=== PATIENT | male | born 1965 | race Caucasian/White ===

== ENCOUNTER 2018-11-01 21:51 | Emergency (ER) | payer OTHER ==
[~2018-11-01] VITALS: Ht 180.3 cm; Wt 68.0 kg
[2018-11-01 22:16] VITALS: BP 124/85
[2018-11-01] MEDS ORDERED: IBUPROFEN 600 MG TABLET PO ONE (23:30)
[2018-11-02 00:28] LABS: APPEARANCE,URINE Clear (CLEAR); BILIRUBIN,URINE Negative (NEGATIVE); BLOOD, URINE Small Ery/uL (NEGATIVE); COLOR,URINE Yellow (YELLOW); KETONES,URINE Negative (NEGATIVE); LEUKOCYTE ESTERASE ,URINE Negative (NEGATIVE); NITRITE, URINE Negative (NEGATIVE); PROTEIN,URINE Trace mg/dl (NEGATIVE); UGLUCOSE Negative (NEGATIVE); UROBILINOGEN,URINE 0.2 EU/dL (0.2)
[2018-11-02] MEDS ORDERED: IBUPROFEN 600 MG TABLET PO ONE (00:40)
[2018-11-02 00:47] LABS: BACTERIA,URINE Few /HPF (None Seen); SQUAMOUS EPITHELIAL CELL,UR Rare /HPF (None Seen); WBC,URINE 0-2 /HPF (0-3)
--- NOTE | 2018-11-02 00:52 | NUR ---
Patient discharged to home in stable condition. Written and verbal after care instructions given. Patient verbalizes understanding of instruction.
== END 2018-11-02 00:54 | disposition home or self-care (01) ==
LOC: ER 21:59
DX: S39.011A Strain of muscle, fascia and tendon of abdomen, initial encounter (principal); F10.10 Alcohol abuse, uncomplicated; Y90.9 Presence of alcohol in blood, level not specified; W22.8XXA Striking against or struck by other objects, initial encounter; Y93.89 Activity, other specified; Y92.89 Other specified places as the place of occurrence of the external cause; Y99.8 Other external cause status
CPT/HCPCS: 76870-TC; 81000-TC

== ENCOUNTER 2019-01-03 05:37 | Emergency (ER) | payer OTHER ==
[~2019-01-03] VITALS: Ht 180.3 cm; Wt 81.6 kg
--- NOTE | 2019-01-03 06:10 | NUR ---
patient came in to the ER c/o epigastric pain and nausea x 4 hours. On room air, breathing evenly and unlabored. connected to the monitor and pulse ox. kept comfortable, will continue to monitor accordingly.
[2019-01-03] MEDS ORDERED: ONDANSETRON HCL/PF 4 MG/2 ML VIAL ONE (06:19)
[2019-01-03] MEDS ORDERED: MAG HYDROX/AL HYDROX/SIMETH 30 ML UDC ONE (06:19)
[2019-01-03] MEDS ORDERED: MORPHINE SULFATE INJ 4 MG/ML DISP.SYRIN ONE (06:19)
[2019-01-03] MEDS ORDERED: IV NS 0.9% 1,000 ML BAG IV ONE (06:30)
[2019-01-03] MEDS ORDERED: ONDANSETRON HCL/PF 4 MG/2 ML VIAL IVP ONE (06:30)
[2019-01-03] MEDS ORDERED: MORPHINE SULFATE INJ 2 MG/ML DISP.SYRIN IV ONE (06:30)
[2019-01-03] MEDS ORDERED: MAG HYDROX/AL HYDROX/SIMETH 30 ML UDC PO ONE (06:30)
[2019-01-03 06:44] LABS: BASOPHILS # (AUTO) 0.1 /CMM (0.0-0.2); BASOPHILS % (AUTO) 0.7 % (0.0-2.0); EOSINOPHILS % (AUTO) 0.7 % (0.0-6.0); HEMATOCRIT 47 % (39-51); HEMOGLOBIN 16.1 g/dL (13.5-17.5); LYMPHOCYTES # (AUTO) 0.8 /CMM (0.8-4.8); LYMPHOCYTES % (AUTO) 8.4 % (20.0-44.0); MEAN CORPUSCULAR HGB CONC 34 g/dl (31.0-36.0); MEAN CORPUSCULAR VOLUME 86 fL (80-96); MONOCYTES # (AUTO) 0.6 /CMM (0.1-1.30); MONOCYTES % (AUTO) 5.9 % (2.0-12.0); NEUTROPHILS # (AUTO) 7.9 /CMM (1.8-8.9); NEUTROPHILS % (AUTO) 84.3 % (43.0-81.0); PLATELET COUNT (AUTO) 190 /CMM (150-450); RED BLOOD CELL COUNT(AUTO) 5.48 MIL/uL (4.5-6.0); WHITE BLOOD COUNT (AUTO) 9.4 K/uL (4.3-11.0)
[2019-01-03 06:47] LABS: CALCIUM, SERUM 9.8 mg/dL (8.5-10.1); CARBON DIOXIDE 28 mmol/L (21-32); CHLORIDE 102 mmol/L (98-107); CREATININE 1.1 mg/dL (0.6-1.3); GLUCOSE 151 mg/dL (74-106); SODIUM SERUM 138 mmol/L (136-145); UREA NITROGEN, BLOOD 15 mg/dL (7-18)
--- NOTE | 2019-01-03 06:48 | NUR ---
urine collected and sent to lab
[2019-01-03 06:53] LABS: ALBUMIN 3.8 g/dL (3.4-5.0); ALKALINE PHOSPHATASE 151 U/L (46-116); BILIRUBIN,DIRECT 0.1 mg/dL (0.0-0.2); BILIRUBIN,TOTAL 0.4 mg/dL (0.2-1.0); LIPASE 160 U/L (73-393); TOTAL PROTEIN, SERUM 7.8 g/dL (6.4-8.2)
[2019-01-03 07:06] LABS: BILIRUBIN,URINE Negative (NEGATIVE); BLOOD, URINE Small Ery/uL (NEGATIVE); COLOR,URINE Yellow (YELLOW); KETONES,URINE Negative (NEGATIVE); LEUKOCYTE ESTERASE ,URINE Negative (NEGATIVE); NITRITE, URINE Negative (NEGATIVE); PROTEIN,URINE Negative (NEGATIVE); UGLUCOSE Negative (NEGATIVE); UROBILINOGEN,URINE 0.2 EU/dL (0.2)
[2019-01-03 07:07] LABS: APPEARANCE,URINE Slightly Hazy (CLEAR)
[2019-01-03 07:16] LABS: BACTERIA,URINE None seen /HPF (None Seen); SQUAMOUS EPITHELIAL CELL,UR Few /HPF (None Seen); WBC,URINE 0-1 /HPF (0-3)
[2019-01-03 07:20] VITALS: BP 118/66
[2019-01-03 07:22] LABS: ALANINE AMINOTRANSFERASE 73 U/L (12-78)
--- NOTE | 2019-01-03 07:22 | NUR ---
Patient discharged to home in stable condition. Written and verbal after care instructions given. Patient verbalizes understanding of instruction. IV removed. Catheter intact and site benign. Pressure and 4x4 applied to site. No bleeding noted.
[2019-01-03 07:46] LABS: ASPARTATE AMINOTRANSFERASE 22 U/L (15-37)
== END 2019-01-03 07:23 | disposition home or self-care (01) ==
LOC: ER 05:39
DX: K80.50 Calculus of bile duct without cholangitis or cholecystitis without obstruction (principal); Z98.890 Other specified postprocedural states
CPT/HCPCS: 36415; 74176; 80048; 80076; 81001; 83690; 84484; 85025; 96374; 96375; 99284; J2270; J2405; J7030; 81000-TC

== ENCOUNTER 2019-05-23 05:49 | Emergency (ER) | payer OTHER ==
[~2019-05-23] VITALS: Ht 180.3 cm; Wt 89.8 kg
--- NOTE | 2019-05-23 05:55 | NUR ---
BIBSELF WITH FROM HOME TO ER BED 9. AAOX4. NO RESP DISTRES NOTED. AMBULATORY. C/O GEN ABDOMINAL PAIN SINCE 4AM THIS MORNING. PT REPORTS THAT PAIN RADIATES TO LEFT AND RIGHT FLANK AT TIMES BUT NO RADIATING PAIN AT THIS TIME. PAIN IS RATED 9/10 W/ SENSATION OF BLOATING. PT REPORTS NAUSEA AND X 3 EPISODE OF LOOSE STOOL. AWAITING MD MARIUM GONZÁLES.
[2019-05-23] MEDS ORDERED: ONDANSETRON HCL/PF 4 MG/2 ML VIAL IVP ONE (06:00)
[2019-05-23] MEDS ORDERED: IV NS 0.9% 500 ML BAG IV ONE (06:00)
[2019-05-23] MEDS ORDERED: HYDROMORPHONE INJ 2 MG/ML DISP.SYRIN IV ONE (06:00)
[2019-05-23] MEDS ORDERED: ONDANSETRON HCL/PF 4 MG/2 ML VIAL ONE (06:02)
[2019-05-23] MEDS ORDERED: HYDROMORPHONE 1 MG/1 ML DISP.SYRIN ONE (06:03)
[2019-05-23 06:31] LABS: BASOPHILS % (AUTO) 0.6 % (0.0-2.0); HEMATOCRIT 46 % (39-51); HEMOGLOBIN 15.3 g/dL (13.5-17.5); LYMPHOCYTES % (AUTO) 14.2 % (20.0-44.0); MEAN CORPUSCULAR HGB CONC 34 g/dl (31.0-36.0); MEAN CORPUSCULAR VOLUME 85 fL (80-96); MONOCYTES # (AUTO) 0.5 /CMM (0.1-1.30); MONOCYTES % (AUTO) 7.3 % (2.0-12.0); NEUTROPHILS # (AUTO) 5.5 /CMM (1.8-8.9); NEUTROPHILS % (AUTO) 75.9 % (43.0-81.0); PLATELET COUNT (AUTO) 256 /CMM (150-450); RED BLOOD CELL COUNT(AUTO) 5.33 MIL/uL (4.5-6.0); WHITE BLOOD COUNT (AUTO) 7.2 K/uL (4.3-11.0)
[2019-05-23 06:45] LABS: ALBUMIN 3.7 g/dL (3.4-5.0); BILIRUBIN,DIRECT 0.1 mg/dL (0.0-0.2); BILIRUBIN,TOTAL 0.4 mg/dL (0.2-1.0); CALCIUM, SERUM 8.8 mg/dL (8.5-10.1); CREATININE 1.1 mg/dL (0.6-1.3); POTASSIUM 3.7 mmol/L (3.5-5.1); TOTAL PROTEIN, SERUM 7.6 g/dL (6.4-8.2)
--- NOTE | 2019-05-23 07:02 | NUR ---
us at bedside
--- NOTE | 2019-05-23 07:26 | NUR ---
Muna montemayor in EDM - 05/23/19 at 0728 by RANDI Patient discharged to home in stable condition. Written and verbal after care instructions given. Patient verbalizes understanding of instruction. Pt ambulatory with a steady gait
[2019-05-23 07:28] VITALS: BP 136/80
--- NOTE | 2019-05-23 07:28 | NUR ---
Patient discharged to home in stable condition. Written and verbal after care instructions given. Patient verbalizes understanding of instruction.IV removed. Catheter intact and site benign. Pressure and 4x4 applied to site. No bleeding noted. Pt ambulatory with a steady gait
== END 2019-05-23 07:29 | disposition home or self-care (01) ==
LOC: ER 05:49
DX: K80.50 Calculus of bile duct without cholangitis or cholecystitis without obstruction (principal); R11.2 Nausea with vomiting, unspecified; F10.10 Alcohol abuse, uncomplicated; Y90.9 Presence of alcohol in blood, level not specified; Z98.890 Other specified postprocedural states
CPT/HCPCS: 36415; 76705; 80048; 80076; 83690; 85025; 96374; 96375; 99284; J1170; J2405; J7040

== ENCOUNTER 2019-08-16 21:58 | Emergency (ER) | payer OTHER ==
[~2019-08-16] VITALS: Ht 180.3 cm; Wt 79.4 kg
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
[2019-08-16] MEDS ORDERED: HYDROCODONE/APAP 5/325MG 1 EACH TABLET ONE (22:28)
[2019-08-16] MEDS ORDERED: ASPIRIN 81 MG TAB.CHEW ONE (22:28)
[2019-08-16] MEDS ORDERED: HYDROCODONE/APAP 5/325MG 1 EACH TABLET PO ONE (22:30)
[2019-08-16] MEDS ORDERED: ASPIRIN 81 MG TAB.CHEW PO ONE (22:30)
--- NOTE | 2019-08-16 22:38 | NUR ---
Bulk Station Operator at bedside for lab collection. IV initiated RAC 20G.
[2019-08-16 22:39] LABS: BASOPHILS # (AUTO) 0.1 /CMM (0.0-0.2); BASOPHILS % (AUTO) 0.9 % (0.0-2.0); EOSINOPHILS % (AUTO) 0.7 % (0.0-6.0); HEMATOCRIT 47 % (39-51); HEMOGLOBIN 15.8 g/dL (13.5-17.5); LYMPHOCYTES # (AUTO) 1.3 /CMM (0.8-4.8); LYMPHOCYTES % (AUTO) 17.4 % (20.0-44.0); MEAN CORPUSCULAR HGB CONC 34 g/dl (31.0-36.0); MEAN CORPUSCULAR VOLUME 85 fL (80-96); MONOCYTES # (AUTO) 0.7 /CMM (0.1-1.30); MONOCYTES % (AUTO) 9.2 % (2.0-12.0); NEUTROPHILS # (AUTO) 5.5 /CMM (1.8-8.9); NEUTROPHILS % (AUTO) 71.8 % (43.0-81.0); PLATELET COUNT (AUTO) 215 /CMM (150-450); RED BLOOD CELL COUNT(AUTO) 5.58 MIL/uL (4.5-6.0); WHITE BLOOD COUNT (AUTO) 7.7 K/uL (4.3-11.0)
--- NOTE | 2019-08-16 22:39 | NUR ---
BROUGHT TO CT
[2019-08-16 22:49] LABS: CALCIUM, SERUM 9.3 mg/dL (8.5-10.1); CARBON DIOXIDE 28 mmol/L (21-32); CHLORIDE 106 mmol/L (98-107); CREATININE 1.2 mg/dL (0.6-1.3); GLUCOSE 99 mg/dL (74-106); POTASSIUM 3.8 mmol/L (3.5-5.1); SODIUM SERUM 143 mmol/L (136-145); UREA NITROGEN, BLOOD 13 mg/dL (7-18)
[2019-08-16 23:07] LABS: ALANINE AMINOTRANSFERASE 54 U/L (12-78); ALBUMIN 3.9 g/dL (3.4-5.0); ALKALINE PHOSPHATASE 180 U/L (46-116); ASPARTATE AMINOTRANSFERASE 30 U/L (15-37); B-TYPE NATRIURETIC PEPTIDE 14 PG/ML (0-125); BILIRUBIN,DIRECT 0.1 mg/dL (0.0-0.2); BILIRUBIN,TOTAL 0.4 mg/dL (0.2-1.0); TOTAL PROTEIN, SERUM 7.7 g/dL (6.4-8.2)
--- NOTE | 2019-08-17 02:14 | NUR ---
IV removed. Catheter intact and site benign. Pressure and 4x4 applied to site. No bleeding noted.
[2019-08-17 02:15] VITALS: BP 112/82
--- NOTE | 2019-08-17 02:15 | NUR ---
Patient discharged to home in stable condition. Written and verbal after care instructions given. Patient verbalizes understanding of instruction and RX. PT ambulated with steady gait.
== END 2019-08-17 02:17 | disposition home or self-care (01) ==
LOC: ER 22:00
DX: S20.212A Contusion of left front wall of thorax, initial encounter (principal); R07.89 Other chest pain; R94.31 Abnormal electrocardiogram [ECG] [EKG]; F17.210 Nicotine dependence, cigarettes, uncomplicated; Z71.6 Tobacco abuse counseling; Z98.890 Other specified postprocedural states; W22.8XXA Striking against or struck by other objects, initial encounter; Y93.89 Activity, other specified; Y92.89 Other specified places as the place of occurrence of the external cause; Y99.8 Other external cause status
CPT/HCPCS: 36415; 71100-TC; 80048-TC; 80076-TC; 83880; 84484-TC; 85025-TC; 85378-TC

== ENCOUNTER 2020-05-08 09:37 | Emergency (ER) | payer OTHER ==
[~2020-05-08] VITALS: Ht 177.8 cm; Wt 93.4 kg
[2020-05-08] MEDS ORDERED: ONDANSETRON 4 MG TAB.RAPDIS ONE (10:11)
[2020-05-08] MEDS ORDERED: MAG HYDROX/AL HYDROX/SIMETH 30 ML UDC ONE (10:11)
[2020-05-08] MEDS ORDERED: HYDROCODONE/APAP 5/325MG TABLET ONE (10:11)
[2020-05-08] MEDS: MAG HYDROX/AL HYDROX/SIMETH 30 ML UDC PO ONE (10:14)
[2020-05-08] MEDS: HYDROCODONE/APAP 5/325MG TABLET PO ONE (10:14)
[2020-05-08] MEDS: ONDANSETRON HCL 4 MG/5 ML SOLUTION PO ONE (10:14)
--- NOTE | 2020-05-08 10:15 | NUR ---
patient came in to the er c/o diffuse abdominal pain, nausea since 0300. +covid. On room air, breathing evenly and unlabored. Kept comfortable, will continue to monitor accordingly.
[2020-05-08 10:29] LABS: BASOPHILS % (AUTO) 0.3 % (0.0-2.0); EOSINOPHILS % (AUTO) 0.1 % (0.0-6.0); HEMATOCRIT 47 % (39-51); HEMOGLOBIN 15.9 g/dL (13.5-17.5); LYMPHOCYTES # (AUTO) 0.5 /CMM (0.8-4.8); LYMPHOCYTES % (AUTO) 8.1 % (20.0-44.0); MEAN CORPUSCULAR HGB CONC 34 g/dl (31.0-36.0); MEAN CORPUSCULAR VOLUME 88 fL (80-96); MONOCYTES # (AUTO) 0.5 /CMM (0.1-1.30); MONOCYTES % (AUTO) 7.7 % (2.0-12.0); NEUTROPHILS # (AUTO) 5.1 /CMM (1.8-8.9); NEUTROPHILS % (AUTO) 83.8 % (43.0-81.0); PLATELET COUNT (AUTO) 148 /CMM (150-450); RED BLOOD CELL COUNT(AUTO) 5.36 MIL/uL (4.5-6.0); WHITE BLOOD COUNT (AUTO) 6.1 K/uL (4.3-11.0)
[2020-05-08 10:37] LABS: POTASSIUM 4.4 mmol/L (3.5-5.1)
[2020-05-08 10:43] LABS: BILIRUBIN,DIRECT 0.2 mg/dL (0.0-0.2); BILIRUBIN,TOTAL 0.4 mg/dL (0.2-1.0); TOTAL PROTEIN, SERUM 8.3 g/dL (6.4-8.2)
[2020-05-08] MEDS: IV PREMIX D5 1/2NS + KCL 1,000 ML IV ONE (11:05)
[2020-05-08] MEDS: IV NS 0.9% 1,000 ML IV ONE (11:05)
[2020-05-08 12:10] VITALS: BP 121/71
--- NOTE | 2020-05-08 12:11 | NUR ---
Patient discharged to home in stable condition. Written and verbal after care instructions given. Patient verbalizes understanding of instruction.
== END 2020-05-08 12:11 | disposition home or self-care (01) ==
LOC: ER 09:40
DX: K80.50 Calculus of bile duct without cholangitis or cholecystitis without obstruction (principal); K59.00 Constipation, unspecified; U07.1 COVID-19; F17.200 Nicotine dependence, unspecified, uncomplicated; Z98.890 Other specified postprocedural states
CPT/HCPCS: 36415; 71045; 74021; 80048; 80076; 85025; 99284; Q0162

== ENCOUNTER 2021-04-15 12:43 | Emergency (ER) | payer OTHER ==
[~2021-04-15] VITALS: Ht 180.3 cm; Wt 90.7 kg
[2021-04-15 12:56] VITALS: BP 130/90
[2021-04-15] MEDS ORDERED: PERM60CR6 TP (13:02)
--- NOTE | 2021-04-15 13:20 | NUR ---
Patient discharged to home in stable condition. Written and verbal after care instructions given. Patient verbalizes understanding of instruction.
== END 2021-04-15 13:20 | disposition home or self-care (01) ==
LOC: ER 12:43
DX: S30.861A Insect bite (nonvenomous) of abdominal wall, initial encounter (principal); Z98.890 Other specified postprocedural states; Z79.899 Other long term (current) drug therapy; W57.XXXA Bitten or stung by nonvenomous insect and other nonvenomous arthropods, initial encounter; Y93.89 Activity, other specified; Y92.89 Other specified places as the place of occurrence of the external cause; Y99.8 Other external cause status

== ENCOUNTER → 2023-02-25 | Emergency (ER) | payer OTHER ==
[~2023-02-25] VITALS: Ht 180.3 cm; Wt 90.7 kg
[~2023-02-25] MED LIST: HYDR453. TP; PERM60CR6 TP
[2023-02-25 15:10] VITALS: BP 134/78; TEMP 98.2
[2023-02-25 16:28] VITALS: O2SAT 97
== END | disposition home or self-care (01) ==
LOC: ER 15:11
DX: S30.860A Insect bite (nonvenomous) of lower back and pelvis, initial encounter (principal); F17.200 Nicotine dependence, unspecified, uncomplicated; W57.XXXA Bitten or stung by nonvenomous insect and other nonvenomous arthropods, initial encounter; Y93.89 Activity, other specified; Y92.89 Other specified places as the place of occurrence of the external cause; Y99.8 Other external cause status

== ENCOUNTER 2023-04-12 00:32 | Emergency (ER) | payer OTHER ==
[~2023-04-12] VITALS: Ht 180.3 cm; Wt 86.2 kg
[2023-04-12 01:50] VITALS: BP 148/83; TEMP 98.1; O2SAT 100
== END 2023-04-12 01:06 | disposition home or self-care (01) ==
LOC: ER 00:34
DX: R14.0 Abdominal distension (gaseous) (principal); F17.200 Nicotine dependence, unspecified, uncomplicated; Z98.890 Other specified postprocedural states; Z79.899 Other long term (current) drug therapy

== ENCOUNTER 2023-07-28 18:15 | Emergency (ER) | payer OTHER ==
[~2023-07-28] VITALS: Ht 180.3 cm; Wt 86.2 kg
[2023-07-28 20:15] VITALS: TEMP 98.5
[2023-07-28] MEDS ORDERED: IBUPROFEN 400 MG TABLET ONE (20:51)
[2023-07-28] MEDS: IBUPROFEN 400 MG TABLET PO ONE (20:56)
[2023-07-28 20:58] LABS: BASOPHILS # (AUTO) 0.1 K/uL (0.0-0.2); BASOPHILS % (AUTO) 1.5 % (0.0-2.0); EOSINOPHILS # (AUTO) 0.1 K/uL (0.0-0.7); EOSINOPHILS % (AUTO) 1.6 % (0.0-6.0); HEMATOCRIT 44 % (39-51); HEMOGLOBIN 14.6 g/dL (13.5-17.5); LYMPHOCYTES # (AUTO) 1.1 K/uL (0.8-4.8); LYMPHOCYTES % (AUTO) 12.8 % (20.0-44.0); MEAN CORPUSCULAR HEMOGLOBIN 28 PG (26.0-33.0); MEAN CORPUSCULAR HGB CONC 33 g/dl (31.0-36.0); MEAN CORPUSCULAR VOLUME 84 fL (80-96); MONOCYTES # (AUTO) 0.6 K/uL (0.1-1.30); MONOCYTES % (AUTO) 6.7 % (2.0-12.0); NEUTROPHILS # (AUTO) 6.7 K/uL (1.8-8.9); NEUTROPHILS % (AUTO) 77.4 % (43.0-81.0); PLATELET COUNT (AUTO) 248 K/uL (150-450); RED BLOOD CELL COUNT(AUTO) 5.26 MIL/uL (4.5-6.0); RED CELL DISTRIBUTION WIDTH 13.7 % (11.5-15.0); WHITE BLOOD COUNT (AUTO) 8.7 K/uL (4.3-11.0)
[2023-07-28 21:09] LABS: APPEARANCE,URINE CLEAR (CLEAR); BILIRUBIN,URINE NEGATIVE (NEGATIVE); BLOOD, URINE 2+ Ery/uL (NEGATIVE); COLOR,URINE YELLOW (YELLOW); KETONES,URINE NEGATIVE (NEGATIVE); LEUKOCYTE ESTERASE ,URINE NEGATIVE (NEGATIVE); NITRITE, URINE NEGATIVE (NEGATIVE); PH,URINE 5.5 (5.0-8.0); PROTEIN,URINE NEGATIVE (NEGATIVE); UGLUCOSE NEGATIVE (NEGATIVE); UROBILINOGEN,URINE 0.2 EU/dL (0.2)
[2023-07-28 21:11] LABS: ALBUMIN 3.8 g/dL (3.4-5.0); BILIRUBIN,DIRECT 0.1 mg/dL (0.0-0.2); BILIRUBIN,TOTAL 0.4 mg/dL (0.2-1.0); CALCIUM, SERUM 9.1 mg/dL (8.5-10.1); CREATININE 0.9 mg/dL (0.6-1.3); POTASSIUM 4.2 mmol/L (3.5-5.1); TOTAL PROTEIN, SERUM 7.8 g/dL (6.4-8.2)
[2023-07-28 21:19] LABS: ADD URINE CULTURE NO; BACTERIA,URINE Rare /HPF (None Seen); SQUAMOUS EPITHELIAL CELL,UR Few /HPF (None Seen); WBC,URINE NONE SEEN /HPF (0-3)
[2023-07-28] MEDS: KETOROLAC TROMETHAMINE INJ 60 MG/2 ML VIAL IM ONE (21:25)
[2023-07-28] MEDS ORDERED: IBUP-1957 PO (21:36)
[2023-07-28] MEDS ORDERED: KETOROLAC TROMETHAMINE INJ 30 MG/ML VIAL ONE (21:54)
[2023-07-28 22:00] VITALS: BP 130/80; O2SAT 98
== END 2023-07-28 22:01 | disposition home or self-care (01) ==
LOC: ER 18:18
DX: K80.50 Calculus of bile duct without cholangitis or cholecystitis without obstruction (principal)
CPT/HCPCS: 99285; 76705; 96372; 85025; 80048; 83690; 80076; 81001; 36415; J1885